=== PATIENT | female | born 1965 | race Caucasian/White ===

== ENCOUNTER 2016-10-22 09:58 | Emergency (ER) | payer BC ==
[2016-10-22 11:04] VITALS: BP 132/63
--- NOTE | 2016-10-22 11:10 | UC ---
Back Pain HPI - HPI Summary HPI Summary: Left flank pain wrapping around to left lower abdomen x4 days. No fever, no nausea, vomiting, dysuria, back spasms, blood in urine, previous back injury, recent increased activity, previous [ End ] - History of Current Complaint Chief Complaint: UCBackPain Stated Complaint: BACK PAIN Time Seen by Provider: 10/22/16 11:05 Hx Obtained From: Patient Hx Last Menstrual Period: 6 years ago ?: No Onset/Duration: Gradual Onset Timing: Constant Severity Initially: Moderate Severity Currently: Moderate Character: Dull Aggravating: Nothing Alleviating: Nothing Associated Signs And Symptoms: Positive: Negative - Risk Factors AAA Risk Factors: Negative Cauda Equina Risk Factors: Negative - Allergies/Home Medications Allergies/Adverse Reactions: Allergies Allergy/AdvReac Type Severity Reaction Status Date / Time Sulfa Antibiotics Allergy Intermediate Hives Verified 10/22/16 10:54 STERI STRIPS Allergy Bleeding Uncoded 10/22/16 10:54 PMH/Surg Hx/FS Hx/Imm Hx Previously Healthy: Yes Other History Of: Negative For: HIV, Hepatitis B, Hepatitis C - Surgical History Surgical History: Yes Surgery Procedure, Year, and Place: 2006 & 2010 LAP BAND X2, [facility] [place]. 1996 CHOLECYSTECTOMY, [facility] [place]. 06/2014 APPENDECTOMY [facility] [place] - Family History Known Family History: Positive: None, Cardiac Disease - Mother's father from heart disease early age. Negative: Renal Disease - Social History Occupation: Employed Full-time Lives: With Family Alcohol Use: None Substance Use Type: None Smoking Status (MU): Never Smoked Tobacco Have You Smoked in the Last Year: No - Immunization History Most Recent Influenza Vaccination: Pt refuses Most Recent Tetanus Shot: Unknown Most Recent Pneumonia Vaccination: Not indicated Review of Systems Constitutional: Negative Skin: Negative Eyes: Negative ENT: Negative Respiratory: Negative Cardiovascular: Negative Gastrointestinal: Abdominal Pain - left flank pain Genitourinary: Negative Motor: Negative Neurovascular: Negative Musculoskeletal: Negative, Arthralgia Neurological: Negative Psychological: Negative All Other Systems Reviewed And Are Negative: Yes Physical Exam Triage Information Reviewed: Yes Appearance: Well-Appearing, No Pain Distress, Well-Nourished Vital Signs: Initial Vital Signs Temp 99.0 F 10/22/16 10:55 Pulse 65 10/22/16 10:55 Resp 16 10/22/16 10:55 BP 132/63 10/22/16 10:55 Pulse Ox 97 10/22/16 10:55 Vital Signs Reviewed: Yes Eye Exam: Normal ENT Exam: Normal Dental Exam: Normal Neck exam: Normal Neck: Positive: 1 Respiratory Exam: Normal Cardiovascular Exam: Normal Abdominal Exam: Normal Abdomen Description: Positive: Nontender, CVA Tenderness (L) - very mild to deep palpation, Other: Musculoskeletal Exam: Normal Neurological Exam: Normal Psychological Exam: Normal Skin Exam: Normal Back Pain Course/Dx - Course Course Of Treatment: At this time no pain , very mild tenderness to deep palpation. We have no sono here. Discussed CT scan but patient declined and I am agreeable to this . She will call PCP Monday to be seen and if cant get in will return here for sono. Use heat and APAP at this time - Differential Dx/Diagnosis Differential Diagnosis/HQI/PQRI: Renal Colic, Strain, Sprain Provider Diagnoses: left flank pain Discharge - Discharge Plan Condition: Good Disposition: HOME Patient Education Materials: Flank Pain (ED) Referrals: Alonso Salazar DO [Primary Care Provider] - 3 Days Additional Instructions: As we discussed you may need imaging if your symptoms do not improve but we do not have ultrasound available at this time. We do have ultrasound in the Urgent Care setting from 8-3 pm if needed. If your symptoms worsen dramatically please seek medical attention (all Emergency Dept have ultrasound)
== END 2016-10-22 11:43 | disposition home or self-care (01) ==
LOC: UCCORT 09:58
DX: M54.5 Low back pain (principal); R10.32 Left lower quadrant pain; Z88.2 Allergy status to sulfonamides; Z91.048 Other nonmedicinal substance allergy status; Z98.84 Bariatric surgery status; Z90.49 Acquired absence of other specified parts of digestive tract
CPT/HCPCS: 81003; 99211; G0463